=== PATIENT | male | born 1935 | race Caucasian/White ===

== ENCOUNTER 2021-06-25 07:11 | Inpatient (IN) | payer MEDICARE, OTHER ==
[~2021-06-25] VITALS: Ht 182.9 cm; Wt 92.2 kg
[2021-06-25] MEDS ORDERED: AMLODIPINE BES2.5 MG PO (08:21)
[2021-06-25] MEDS ORDERED: DONEPEZIL HCL10 MG PO (08:22)
[2021-06-25] MEDS ORDERED: CLARITIN10 M1 PO (08:22)
[2021-06-25] MEDS ORDERED: FINASTERIDE5 MG PO (08:23)
[2021-06-25] MEDS ORDERED: ATORVASTATIN CA10 MG PO (08:23)
[2021-06-25] MEDS ORDERED: FARXIGA5 MG PO (08:23)
[2021-06-25] MEDS ORDERED: MELATONIN5 MG PO (08:24)
[2021-06-25] MEDS ORDERED: NOVOLOG MI100 UNIT/1 SC (08:24)
[2021-06-25] MEDS ORDERED: MIRTAZAPINE30 MG PO (08:25)
[2021-06-25] MEDS ORDERED: QUETIAPINE FUMA25 MG PO (08:25)
[2021-06-25] MEDS ORDERED: TERAZOSIN HCL10 MG PO (08:25)
[2021-06-25] MEDS ORDERED: VITAMIN C500 M4 PO (08:26)
[2021-06-25] MEDS ORDERED: VITAMIN B-121000 MCG PO (08:26)
[2021-06-25] MEDS ORDERED: VITAMIN D3250 MC2 PO (08:26)
[2021-06-25] MEDS ORDERED: XARELTO20 MG PO (08:27)
[2021-06-25] MEDS ORDERED: DEPAKOTE 250 M250 MG PO (08:27)
[2021-06-25] MEDS ORDERED: NAMENDA5 MG PO (08:27)
[2021-06-25 08:28] LABS: RED BLOOD COUNT 3.28 M/UL (4.20-5.50); WHITE BLOOD COUNT 8.5 K/UL (4.5-11.0)
[2021-06-25] MEDS ORDERED: FEOSOL325 MG PO (08:28)
[2021-06-25] MEDS ORDERED: HYDRALAZINE HCL50 MG PO (08:28)
[2021-06-25] MEDS ORDERED: LOPRESSOR 25 MG25 MG PO (08:28)
[2021-06-25] MEDS ORDERED: HUMALOG100 UNIT/1 SC (08:29)
[2021-06-26 07:24] LABS: HEMOGLOBIN 9.2 gm/dl (14.0-17.5); RED BLOOD COUNT 3.03 M/UL (4.20-5.50); WHITE BLOOD COUNT 9.3 K/UL (4.5-11.0)
--- NOTE | 2021-06-26 14:12 | NUR ---
06/26/20 1410 SPOKE WITH REGARDING PT STATUS, EXPLAINED NO CHANGE WITH EXCEPTION OF LAB CHANGES. SPOKE WITH REGARDING CODE STATUS, EXPLAINED THAT PT IS NOT TO HAVE CHEST COMPRESSIONS AND IS NOT TO BE PUT ON THE VENTILATOR. EXPLAINED CURRENT CODE STATUS FULL CODE. STATED "NO, WE HAVE A LIVING WILL AND WE HAVE BOTH SIGNED DNR" DR DAHL WAS NOTIFIED WITH ORDERS NOTED.
[2021-06-27 03:34] LABS: HEMOGLOBIN 8.9 gm/dl (14.0-17.5); RED BLOOD COUNT 2.97 M/UL (4.20-5.50); WHITE BLOOD COUNT 9.5 K/UL (4.5-11.0)
[2021-06-28 06:46] LABS: HEMOGLOBIN 8.9 gm/dl (14.0-17.5); RED BLOOD COUNT 2.97 M/UL (4.20-5.50); WHITE BLOOD COUNT 11.1 K/UL (4.5-11.0)
[2021-07-01 06:08] LABS: HEMOGLOBIN 8.8 gm/dl (14.0-17.5); RED BLOOD COUNT 2.95 M/UL (4.20-5.50); WHITE BLOOD COUNT 10.9 K/UL (4.5-11.0)
[2021-07-02 05:07] LABS: RED BLOOD COUNT 2.93 M/UL (4.20-5.50); WHITE BLOOD COUNT 12.2 K/UL (4.5-11.0)
--- NOTE | 2021-07-02 23:23 | NUR ---
TELE CALLED TO INFORM ME OF HEART RATE ABOVE 140. CALLED DR. GLEZ TO NOTIFY HIM, RECEIVED NO NEW ORDERS. WILL CONTINUE TO MONITOR.
--- NOTE | 2021-07-03 08:54 | NUR ---
DR. VASQUEZ NOTIFIED OF PATIENT'S AFIB RVR WITH AM. NEW ORDER NOTED FOR METOPROLOL 5 MG IVP.
--- NOTE | 2021-07-04 10:57 | NUR ---
NOTIFED DR. VASQUEZ OF PATIENT HAVING A BP READING OF 122/38. NO NEW ORDERS AT THIS TIME. WILL CONTINUE TO MONITOR.
--- NOTE | 2021-07-04 13:05 | NUR ---
NOTIFIED MD OF PATIENT DESATING ON THE AIRVO TO 75-80%, MD SAID PATIENT COULD BE PLACED ON BIPAP. FAMILY WISHES TO PLACES PATIENT ON BIPAP. PATIENT IS NOW ON BIPAP AND SATS ARE 100%. WILL CONTINUE TO MONITOR.
--- NOTE | 2021-07-07 14:57 | NUR ---
patient does not have order for telemetry with pulse ox and I have notified dr. diop and he stated to d/c telemetry woth pulse ox. I informed nutrition technician devika about it that there is no order written in the firs place to discontinue telemetry.
--- NOTE | 2021-07-07 18:12 | NUR ---
PT'S KAELYN MOSS NOTIFIED AT APPROX 5:30PM ABOUT PTS TIME OF WHICH WAS APPROXIMATELY 5:20PM. KAELYN MOSS STATES WHE WILL CALL [facility] FOR HIS EMBALMING WHEN HANGING UP PHONE WITH ME. DR. VASQUEZ NOTIFIED OF PT'S AT 5:20PM. SHI OLIVAREZ RN AND ROSALBA CULLEN RN PRONOUNCED PTS , ROSALBA NOTIFIED MANDI OF PTS .
--- NOTE | 2021-07-07 18:46 | NUR ---
patient was picked up by [facility] @[id number].
== END 2021-07-07 18:30 | disposition expired | DRG 682 ==
LOC: OR 07:11 → PROG CARE 15:18 → OR 15:31 → PROG CARE 15:41 → M/S 15:41
PROVIDERS: Internal Medicine; Internal Medicine Gastroenterology; Internal Medicine Nephrology; Physician Assistant; Physician Assistant Medical; ADMIT Internal Medicine
DX: N17.0 Acute kidney failure with tubular necrosis (principal); J18.9 Pneumonia, unspecified organism; J96.02 Acute respiratory failure with hypercapnia; G93.41 Metabolic encephalopathy; J96.01 Acute respiratory failure with hypoxia; E87.2 Acidosis; I12.0 Hypertensive chronic kidney disease with stage 5 chronic kidney disease or end stage renal disease; F03.91 Unspecified dementia, unspecified severity, with behavioral disturbance; N13.8 Other obstructive and reflux uropathy; K92.2 Gastrointestinal hemorrhage, unspecified; Z20.822 Contact with and (suspected) exposure to COVID-19; H40.10X0 Unspecified open-angle glaucoma, stage unspecified; N40.0 Benign prostatic hyperplasia without lower urinary tract symptoms; F32.A Depression, unspecified; L89.312 Pressure ulcer of right buttock, stage 2; E87.5 Hyperkalemia; F41.9 Anxiety disorder, unspecified; Z66 Do not resuscitate; N18.30 Chronic kidney disease, stage 3 unspecified; K21.9 Gastro-esophageal reflux disease without esophagitis; I48.0 Paroxysmal atrial fibrillation; E11.22 Type 2 diabetes mellitus with diabetic chronic kidney disease; E78.5 Hyperlipidemia, unspecified; D64.9 Anemia, unspecified; Z86.73 Personal history of transient ischemic attack (TIA), and cerebral infarction without residual deficits; Z51.5 Encounter for palliative care; Z87.440 Personal history of urinary (tract) infections; Z90.49 Acquired absence of other specified parts of digestive tract; Z79.01 Long term (current) use of anticoagulants; Z79.4 Long term (current) use of insulin; Z79.899 Other long term (current) drug therapy
CPT/HCPCS: 36415; 36600; 71045; 80048; 80053; 82570; 82728; 82803; 82962; 83540; 83550; 84100; 84300; 85025; 85027; 89050; 93005; 94660; 94760; A6212; J0692; J1756; J2060; J2270; J7030; J7040; U0002